=== PATIENT | male | born 1990 | race Caucasian/White ===

== ENCOUNTER 2018-06-05 18:05 | Emergency (ER) | payer OTHER, MEDICAID, SELFPAY ==
[2018-06-05 18:11] VITALS: BP 136/91; PULSE 81; RESP 14; TEMP 36.7; O2SAT 100; BMI 20.5
--- NOTE | 2018-06-05 18:37 | ED.SKABFB ---
HPI - Skin/Abscess/Foreign Bdy <HENRY Monteiro - Last Filed: 06/05/18 21:15> General Chief complaint: Skin/Abscess/Foreign Body Stated complaint: right eye swollen shut Time Seen by Provider: 06/05/18 18:17 Source: patient Mode of arrival: ambulatory Limitations: no limitations History of Present Illness HPI narrative: Patient is a 27-year-old male current everyday smoker who presents by himself with chief complaint of his right eye swollen shut. He states he tried to pop a pimple on his right eyebrow yesterday and got pus out, and then it started swelling. He has not taken anything for pain. He has not applied ice heat or cold packs. He denies any fever, nausea vomiting or diarrhea at this point time. He states his vision is okay, despite the swelling in his right eye. Related Data Previous Rx's Medication Instructions Recorded sulfamethoxazole-trimethoprim 1 tab PO BID #20 tab 06/05/18 [Bactrim DS] Allergies Allergy/AdvReac Type Severity Reaction Status Date / Time Penicillins [PENICILLINS] Allergy Unknown Verified 06/05/18 18:13 Review of Systems <HENRY Monteiro - Last Filed: 06/05/18 21:15> Review of Systems GENERAL: Denies chills, fatigue, malaise, fever, sweats. HEENT: See HPI RESPIRATORY: Denies dyspnea, cough, wheezing, hemoptysis, sputum. CARDIOVASCULAR: Denies chest pain, palpitations, orthopnea, edema, GASTROINTESTINAL: Denies nausea, vomiting, abdominal pain, diarrhea, constipation, melena. : Denies dysuria, frequency, incontinence, hematuria, urinary retention. MUSCULOSKELETAL: denies weakness, joint pain, or bony pain SKIN: See HPI NEUROLOGIC: Denies weakness, headache, numbness, change in speech, confusion, seizures, incoordination. PSYCHIATRIC: No concerning psychosocial issues. 12 point review of systems is negative except for those stated above Exam <HENRY Monteiro - Last Filed: 06/05/18 21:15> Narrative Exam Narrative: GENERAL: This is a well-nourished, well-developed patient, in no acute distress HEAD: Atraumatic. Normocephalic. No temporal or scalp tenderness. EYES: Pupils equal round and reactive. Extraocular motions intact. No scleral icterus. No injection or drainage. ENT: Nose without bleeding, purulent drainage or septal hematoma. Throat without erythema, tonsillar hypertrophy or exudate. Uvula midline. Airway patent. NECK: Trachea midline. No JVD or lymphadenopathy. Supple, nontender, no meningeal signs. CARDIOVASCULAR: Regular rate and rhythm without murmurs, gallops, or rubs. RESPIRATORY: Clear to auscultation. Breath sounds equal bilaterally. No wheezes, rales, or rhonchi. No cough. No increased respiratory effort. GASTROINTESTINAL: Abdomen soft, non-tender, nondistended. No hepato-splenomegaly, or palpable masses. No guarding. EXTREMITIES: No clubbing, cyanosis, or edema. No joint tenderness, effusion, or edema noted. BACK: Nontender without deformity or crepitance. No flank tenderness. NEURO: AOx3. SKIN: Erythema noted right eyebrow with swelling. No palpable fluctuance or abscess. Swelling noted from eyebrow down to top of eyelid. No noted exudate. Initial Vital Signs Initial Vital Signs: Vital Signs Temperature 98.1 F 06/05/18 18:11 Pulse Rate 81 06/05/18 18:11 Respiratory Rate 14 06/05/18 18:11 Blood Pressure 136/91 H 06/05/18 18:11 Pulse Oximetry 100 06/05/18 18:11 <Aries Stewart DO - Last Filed: 06/06/18 00:42> Initial Vital Signs Initial Vital Signs: Vital Signs Temperature 98.1 F 06/05/18 18:11 Pulse Rate 81 06/05/18 18:11 Respiratory Rate 14 06/05/18 18:11 Blood Pressure 136/91 H 06/05/18 18:11 Pulse Oximetry 100 06/05/18 18:11 Course <OWEN Monteiro-BC - Last Filed: 06/05/18 21:15> Orders Ordered: Discontinued Medications Ketorolac Tromethamine (Toradol) 60 mg IM NOW ONE Stop: 06/05/18 18:38 Last Admin: 06/05/18 18:55 Dose: 60 mg Trimethoprim/Sulfamethoxazole (Bactrim Ds) 1 tab PO NOW ONE Stop: 06/05/18 18:48 Last Admin: 06/05/18 18:55 Dose: 1 tab Vital Signs - 8 hr 06/05/18 18:11 06/05/18 19:16 Temperature 98.1 F 97.6 F Pulse Rate 81 98 H Respiratory Rate 14 16 Blood Pressure 136/91 H Pulse Oximetry 100 99 <Aries Stewart DO - Last Filed: 06/06/18 00:42> Orders Ordered: Discontinued Medications Ketorolac Tromethamine (Toradol) 60 mg IM NOW ONE Stop: 06/05/18 18:38 Last Admin: 06/05/18 18:55 Dose: 60 mg Trimethoprim/Sulfamethoxazole (Bactrim Ds) 1 tab PO NOW ONE Stop: 06/05/18 18:48 Last Admin: 06/05/18 18:55 Dose: 1 tab Vital Signs - 8 hr 06/05/18 18:11 06/05/18 19:16 Temperature 98.1 F 97.6 F Pulse Rate 81 98 H Respiratory Rate 14 16 Blood Pressure 136/91 H Pulse Oximetry 100 99 MDM - Skin/Abscess/Foreign Bdy <HENRY Monteiro - Last Filed: 06/05/18 21:15> MDM Narrative Medical decision making narrative: Patient presents with concern about a an infection worry picked at a pimple on his right eye. Exam shows erythema and swelling consistent with cellulitis. No palpable abscess. Will initiate treatment with Bactrim. Patient was given 1st dose as well as Toradol in the emergency department. I encouraged him to keep using warm packs as well as [id number] pain medications as needed. I discussed at length come back to the emergency department for any acute concerns including visual deficit in instructed to monitor for fever at as well as nausea vomiting and diarrhea. Patient no questions or concerns upon discharge. Discharge Plan Departure Patient Disposition: Home Clinical Impression: Cellulitis Discharge Date/Time: 06/05/18 19:17 Interventions: ED Discharge Assessment Last Done: 06/05/18 19:16 Instructions: DI for Cellulitis -- Adult Activity Restrictions/Additional Instructions: I am starting on an antibiotic to help your skin infection. Please monitor for fever, nausea vomiting or diarrhea. Please monitor for spreading of the redness. Please continue use [id number] medications as needed for pain and apply warm packs to the area. Prescriptions: New sulfamethoxazole-trimethoprim [Bactrim DS] 800-160 mg tablet 1 tab PO BID Qty: 20 RF: 0 <Aries Stewart, DO - Last Filed: 06/06/18 00:42> Cosign ED Attending Cosignature Attestation: I was immediately available in the department for consultation. Documentation has been reviewed. I agree with assessment and plan.
--- NOTE | 2018-06-05 18:41 | ED_ITS ---
HPI - Skin/Abscess/Foreign Bdy <HENRY Monteiro - Last Filed: 06/05/18 21:15> General Chief complaint: Skin/Abscess/Foreign Body Stated complaint: right eye swollen shut Time Seen by Provider: 06/05/18 18:17 Source: patient Mode of arrival: ambulatory Limitations: no limitations History of Present Illness HPI narrative: Patient is a 27-year-old male current everyday smoker who presents by himself with chief complaint of his right eye swollen shut. He states he tried to pop a pimple on his right eyebrow yesterday and got pus out, and then it started swelling. He has not taken anything for pain. He has not applied ice heat or cold packs. He denies any fever, nausea vomiting or diarrhea at this point time. He states his vision is okay, despite the swelling in his right eye. Related Data Previous Rx's Medication Instructions Recorded sulfamethoxazole-trimethoprim 1 tab PO BID #20 tab 06/05/18 [Bactrim DS] Allergies Allergy/AdvReac Type Severity Reaction Status Date / Time Penicillins [PENICILLINS] Allergy Unknown Verified 06/05/18 18:13 Review of Systems <HENRY Monteiro - Last Filed: 06/05/18 21:15> Review of Systems GENERAL: Denies chills, fatigue, malaise, fever, sweats. HEENT: See HPI RESPIRATORY: Denies dyspnea, cough, wheezing, hemoptysis, sputum. CARDIOVASCULAR: Denies chest pain, palpitations, orthopnea, edema, GASTROINTESTINAL: Denies nausea, vomiting, abdominal pain, diarrhea, constipation, melena. : Denies dysuria, frequency, incontinence, hematuria, urinary retention. MUSCULOSKELETAL: denies weakness, joint pain, or bony pain SKIN: See HPI NEUROLOGIC: Denies weakness, headache, numbness, change in speech, confusion, seizures, incoordination. PSYCHIATRIC: No concerning psychosocial issues. 12 point review of systems is negative except for those stated above Exam <HENRY Monteiro - Last Filed: 06/05/18 21:15> Narrative Exam Narrative: GENERAL: This is a well-nourished, well-developed patient, in no acute distress HEAD: Atraumatic. Normocephalic. No temporal or scalp tenderness. EYES: Pupils equal round and reactive. Extraocular motions intact. No scleral icterus. No injection or drainage. ENT: Nose without bleeding, purulent drainage or septal hematoma. Throat without erythema, tonsillar hypertrophy or exudate. Uvula midline. Airway patent. NECK: Trachea midline. No JVD or lymphadenopathy. Supple, nontender, no meningeal signs. CARDIOVASCULAR: Regular rate and rhythm without murmurs, gallops, or rubs. RESPIRATORY: Clear to auscultation. Breath sounds equal bilaterally. No wheezes , rales, or rhonchi. No cough. No increased respiratory effort. GASTROINTESTINAL: Abdomen soft, non-tender, nondistended. No hepato-splenomegaly , or palpable masses. No guarding. EXTREMITIES: No clubbing, cyanosis, or edema. No joint tenderness, effusion, or edema noted. BACK: Nontender without deformity or crepitance. No flank tenderness. NEURO: AOx3. SKIN: Erythema noted right eyebrow with swelling. No palpable fluctuance or abscess. Swelling noted from eyebrow down to top of eyelid. No noted exudate. Initial Vital Signs Initial Vital Signs: Vital Signs Temperature 98.1 F 06/05/18 18:11 Pulse Rate 81 06/05/18 18:11 Respiratory Rate 14 06/05/18 18:11 Blood Pressure 136/91 H 06/05/18 18:11 Pulse Oximetry 100 06/05/18 18:11 <Aries Stewart DO - Last Filed: 06/06/18 00:42> Initial Vital Signs Initial Vital Signs: Vital Signs Temperature 98.1 F 06/05/18 18:11 Pulse Rate 81 06/05/18 18:11 Respiratory Rate 14 06/05/18 18:11 Blood Pressure 136/91 H 06/05/18 18:11 Pulse Oximetry 100 06/05/18 18:11 Course <OWEN Monteiro-BC - Last Filed: 06/05/18 21:15> Orders Ordered: Discontinued Medications Ketorolac Tromethamine (Toradol) 60 mg IM NOW ONE Stop: 06/05/18 18:38 Last Admin: 06/05/18 18:55 Dose: 60 mg Trimethoprim/Sulfamethoxazole (Bactrim Ds) 1 tab PO NOW ONE Stop: 06/05/18 18:48 Last Admin: 06/05/18 18:55 Dose: 1 tab Vital Signs - 8 hr 06/05/18 18:11 06/05/18 19:16 Temperature 98.1 F 97.6 F Pulse Rate 81 98 H Respiratory Rate 14 16 Blood Pressure 136/91 H Pulse Oximetry 100 99 <Aries Stewart DO - Last Filed: 06/06/18 00:42> Orders Ordered: Discontinued Medications Ketorolac Tromethamine (Toradol) 60 mg IM NOW ONE Stop: 06/05/18 18:38 Last Admin: 06/05/18 18:55 Dose: 60 mg Trimethoprim/Sulfamethoxazole (Bactrim Ds) 1 tab PO NOW ONE Stop: 06/05/18 18:48 Last Admin: 06/05/18 18:55 Dose: 1 tab Vital Signs - 8 hr 06/05/18 18:11 06/05/18 19:16 Temperature 98.1 F 97.6 F Pulse Rate 81 98 H Respiratory Rate 14 16 Blood Pressure 136/91 H Pulse Oximetry 100 99 MDM - Skin/Abscess/Foreign Bdy <HENRY Monteiro - Last Filed: 06/05/18 21:15> MDM Narrative Medical decision making narrative: Patient presents with concern about a an infection worry picked at a pimple on his right eye. Exam shows erythema and swelling consistent with cellulitis. No palpable abscess. Will initiate treatment with Bactrim. Patient was given 1st dose as well as Toradol in the emergency department. I encouraged him to keep using warm packs as well as over -the-counter pain medications as needed. I discussed at length come back to the emergency department for any acute concerns including visual deficit in instructed to monitor for fever at as well as nausea vomiting and diarrhea. Patient no questions or concerns upon discharge. Discharge Plan Departure Patient Disposition: Home Clinical Impression: Cellulitis Discharge Date/Time: 06/05/18 19:17 Interventions: ED Discharge Assessment Last Done: 06/05/18 19:16 Instructions: DI for Cellulitis -- Adult Activity Restrictions/Additional Instructions: I am starting on an antibiotic to help your skin infection. Please monitor for fever, nausea vomiting or diarrhea. Please monitor for spreading of the redness. Please continue use [id number] medications as needed for pain and apply warm packs to the area. Prescriptions: New sulfamethoxazole-trimethoprim [Bactrim DS] 800-160 mg tablet 1 tab PO BID Qty: 20 RF: 0 <Aries Stewart, DO - Last Filed: 06/06/18 00:42> Cosign ED Attending Cosignature Attestation: I was immediately available in the department for consultation. Documentation has been reviewed. I agree with assessment and plan.
[2018-06-05] MEDS: KETOROLAC 60 MG/2 ML VIAL IM (18:55)
[2018-06-05] MEDS: TRIMETH/SULFA 160/800 (DS) TABLET 1 TAB PO (18:55)
[2018-06-05 19:16] VITALS: PULSE 98; RESP 16; TEMP 36.4; O2SAT 99
== END 2018-06-05 19:17 | disposition home or self-care (01) ==
PROVIDERS: Emergency Provider Nurse Practitioner Family
DX: H00.033 Abscess of eyelid right eye, unspecified eyelid (principal)
CPT/HCPCS: 96372; 99282; 99283; J1885

== ENCOUNTER 2018-06-08 14:00 | Emergency (ER) | payer OTHER, MEDICAID, SELFPAY ==
[2018-06-08 14:09] VITALS: BP 140/90; PULSE 99; RESP 14; TEMP 36.5; O2SAT 99; BMI 21.2
--- NOTE | 2018-06-08 14:10 | ED.SKABFB ---
HPI - Skin/Abscess/Foreign Bdy <CONCEPCION Johnson - Last Filed: 06/08/18 21:23> General Chief complaint: Skin/Abscess/Foreign Body Stated complaint: RIGHT EYE SWELLING SPREADING Time Seen by Provider: 06/08/18 14:08 Source: patient Mode of arrival: ambulatory Limitations: no limitations History of Present Illness HPI narrative: 27-year-old male with history of heroin abuse as an everyday smoker here for complaint of swelling and discomfort to his right periorbital area over the past several days. He was seen in the emergency room 3 days ago and was diagnosed with cellulitis and placed on Bactrim. He states that the swelling has worsened over the past few days and not improved. He does report having a small amount of purulent drainage from the right eyebrow are area. He states that he has accidentally scratched his right eyebrow area and symptoms followed shortly afterwards. He denies any fevers or chills. He does report that he is having pain worsening towards his right cheek area and also towards his right ear area. He denies any stressors relievers of his discomfort. MD complaint: other Related Data Home Medications Medication Instructions Recorded Confirmed buprenorphine-naloxone 8.2 mg SUBLINGUAL DIRECTED 06/08/18 06/08/18 Previous Rx's Medication Instructions Recorded sulfamethoxazole-trimethoprim 1 tab PO BID #20 tab 06/05/18 [Bactrim DS] clindamycin HCl 300 mg PO QID #28 cap 06/08/18 clindamycin HCl 300 mg PO Q6H 10 Days #40 cap 06/09/18 Allergies Allergy/AdvReac Type Severity Reaction Status Date / Time Penicillins [PENICILLINS] Allergy Unknown Verified 06/08/18 14:08 Review of Systems <CONCEPCION Johnson - Last Filed: 06/08/18 21:23> Constitutional Denies chills, Denies fever(s), Denies lethargy and Denies weakness Eyes Comments: Swelling to the periorbital area the right ENT Ears, Nose, Mouth, and Throat: Denies change in voice, Denies neck pain and Denies sore throat Cardiovascular Denies chest pain, Denies irregular heart rhythm, Denies lightheadedness, Denies palpitations, Denies dyspnea, Denies dyspnea on exertion and Denies orthopnea Respiratory Denies cough, Denies dyspnea, Denies dyspnea on exertion and Denies wheezing Gastrointestinal Gastrointestinal: Denies abdominal pain, Denies change in bowel habits, Denies diarrhea, Denies nausea and Denies vomiting Genitourinary Denies hematuria, Denies flank pain, Denies urinary incontinence and Denies urinary urgency Musculoskeletal Denies neck pain Integumentary/Breasts Denies pruritus, Denies erythema, Denies rash and Denies wounds Neurologic Denies confusion and Denies weakness Psychiatric Denies anxiety, Denies confusion, Denies depression, Denies homicidal ideation and Denies suicidal ideation Endocrine Denies palpitations Hematologic/Lymphatic Denies easy bruising Allergic/Immunologic Denies wheezing Exam <CONCEPCION Johnson - Last Filed: 06/08/18 21:23> Initial Vital Signs Initial Vital Signs: Vital Signs Temperature 97.7 F 06/08/18 14:09 Pulse Rate 99 H 06/08/18 14:09 Respiratory Rate 14 06/08/18 14:09 Blood Pressure 140/90 06/08/18 14:09 Pulse Oximetry 99 06/08/18 14:09 Const General: cooperative and well developed Nutritional Appearance: well nourished Orientation: alert, awake, oriented x3 and not confused HENWI Mouth: oral mucosae normal and moist mucous membranes Eyes Periorbital: periorbital findings abnormal (Swelling to the periorbital area and eyebrow area of the right eye. No fluctuance) right Conjunctivae: conjunctivae normal Sclera: sclerae normal Pupils: PERRL EOM: EOM intact bilaterally Resp Effort & Inspection: normal respiratory effort, able to speak in complete sentences, no respiratory distress and no use of accessory muscles Auscultation: clear to auscultation bilaterally, no rales, no rhonchi and no wheezes Cardio Rate: regular rate Rhythm: regular rhythm Heart Sounds: no click, no gallops, no murmurs and no rubs Pulses: normal peripheral pulses Skin General: no rashes or lesions noted, No jaundice and No petechiae Neuro General: alert, oriented x3, gait normal and no focal motor deficits Speech: speech normal <Nury Lomeli DO - Last Filed: 06/11/18 07:28> Initial Vital Signs Initial Vital Signs: Vital Signs Temperature 97.7 F 06/08/18 14:09 Pulse Rate 99 H 06/08/18 14:09 Respiratory Rate 14 06/08/18 14:09 Blood Pressure 140/90 06/08/18 14:09 Pulse Oximetry 99 06/08/18 14:09 Course <CONCEPCION Johnson - Last Filed: 06/08/18 21:23> Orders Ordered: Discontinued Medications Ceftriaxone Sodium/Dextrose (Rocephin) 2 gm in 50 mls @ 100 mls/hr IV NOW ONE Stop: 06/08/18 15:23 Last Infusion: 06/08/18 15:36 Dose: 0 mls/hr Admin: 06/08/18 15:03 Dose: 100 mls/hr Vancomycin HCl 1,250 mg/ (Sodium Chloride) 250 mls @ 250 mls/hr IV NOW ONE Stop: 06/08/18 14:55 Last Infusion: 06/08/18 16:42 Dose: 0 mls/hr Admin: 06/08/18 15:34 Dose: 250 mls/hr Vital Signs - 8 hr 06/08/18 14:09 06/08/18 15:45 06/08/18 16:51 Temperature 97.7 F Pulse Rate 99 H 92 H 100 H Respiratory Rate 14 20 20 Blood Pressure 140/90 129/82 Blood Pressure [Left Arm] 133/85 Pulse Oximetry 99 100 99 <Nury Lomeli DO - Last Filed: 06/11/18 07:28> Orders Ordered: Discontinued Medications Ceftriaxone Sodium/Dextrose (Rocephin) 2 gm in 50 mls @ 100 mls/hr IV NOW ONE Stop: 06/08/18 15:23 Last Infusion: 06/08/18 15:36 Dose: 0 mls/hr Admin: 06/08/18 15:03 Dose: 100 mls/hr Vancomycin HCl 1,250 mg/ (Sodium Chloride) 250 mls @ 250 mls/hr IV NOW ONE Stop: 06/08/18 14:55 Last Infusion: 06/08/18 16:42 Dose: 0 mls/hr Admin: 06/08/18 15:34 Dose: 250 mls/hr Vital Signs - 8 hr 06/08/18 14:09 06/08/18 15:45 06/08/18 16:51 Temperature 97.7 F Pulse Rate 99 H 92 H 100 H Respiratory Rate 14 20 20 Blood Pressure 140/90 129/82 Blood Pressure [Left Arm] 133/85 Pulse Oximetry 99 100 99 MDM - Skin/Abscess/Foreign Bdy <Alverto CONCEPCION Gorman - Last Filed: 06/08/18 21:23> Lab Data Result diagrams: 06/08/18 14:40 06/08/18 14:40 Lab Results 06/08/18 06/08/18 06/08/18 Range/Units 14:40 14:40 14:40 WBC 6.7 (4.5-11.0) X10^3/uL RBC 4.35 L (4.5-5.9) X10^6/uL Hgb 14.2 (13.5-17.5) g/dL Hct 40.9 L (41-53) % MCV 94.1 (80-100) fL MCH 32.6 (26-34) PG MCHC 34.7 (30-36) % RDW 12.8 (11.6-14.8) % Plt Count 246 (150-400) X10^3/uL Neut % (Auto) 64.5 (50-75) % Lymph % (Auto) 25.6 (25-40) % [place]ac % (Auto) 8.7 (3-14) % Eos % (Auto) 0.6 L (2-4) % Baso % (Auto) 0.6 (0-2) % Neut # (Auto) 4300 (5485-5024) /uL Sodium 140 (137-145) mmol/L Potassium 4.1 (3.4-5.1) mmol/L Chloride 102 (98-107) mmol/L Carbon Dioxide 27 (22-32) mmol/L BUN 15 (9-20) mg/dL Creatinine 1.00 (0.66-1.25) mg/dL Estimated GFR > 60.0 (>60) mL/min BUN/Creatinine Ratio 15.0 (6-22) Glucose 92 (70-100) mg/dL Lactate (0.7-2.1) mmol/L Calcium 9.5 (8.4-10.2) mg/dL Total Bilirubin 2.5 H (0.2-1.3) mg/dL AST 29 (17-59) IU/L ALT 29 (21-72) IU/L Alkaline Phosphatase 72 (38-126) U/L Total Protein 7.8 (6.3-8.2) g/dL Albumin 4.5 (3.5-5.0) g/dL Globulin 3.3 (1.7-4.1) g/dL Albumin/Globulin Ratio 1.4 (1.0-2.8) Procalcitonin < 0.05 (<0.5) ng/mL 06/08/18 Range/Units 14:40 WBC (4.5-11.0) X10^3/uL RBC (4.5-5.9) X10^6/uL Hgb (13.5-17.5) g/dL Hct (41-53) % MCV (80-100) fL MCH (26-34) PG MCHC (30-36) % RDW (11.6-14.8) % Plt Count (150-400) X10^3/uL Neut % (Auto) (50-75) % Lymph % (Auto) (25-40) % [place] % (Auto) (3-14) % Eos % (Auto) (2-4) % Baso % (Auto) (0-2) % Neut # (Auto) (4193-8228) /uL Sodium (137-145) mmol/L Potassium (3.4-5.1) mmol/L Chloride (98-107) mmol/L Carbon Dioxide (22-32) mmol/L BUN (9-20) mg/dL Creatinine (0.66-1.25) mg/dL Estimated GFR (>60) mL/min BUN/Creatinine Ratio (6-22) Glucose (70-100) mg/dL Lactate 0.6 L (0.7-2.1) mmol/L Calcium (8.4-10.2) mg/dL Total Bilirubin (0.2-1.3) mg/dL AST (17-59) IU/L ALT (21-72) IU/L Alkaline Phosphatase (38-126) U/L Total Protein (6.3-8.2) g/dL Albumin (3.5-5.0) g/dL Globulin (1.7-4.1) g/dL Albumin/Globulin Ratio (1.0-2.8) Procalcitonin (<0.5) ng/mL Imaging Data facial ct: Radiologist's impression: [address] [address] [address] Scan Report Signed Patient: Brandyn Orellana MR#: [id number] : 1990 Acct:[id number] Age/Sex: 27 / M Date of Service: 06/08/18 Loc: ED Accession Number: [id number] Procedure: CT facial bones w con Ordering Provider: Alverto Gorman PROCEDURE: CT FACIAL BONES W CON INDICATIONS: Worsening swelling and redness right orbit TECHNIQUE: After the administration of intravenous contrast, 2.5 mm axial sections acquired from the mid-neck to the frontal sinuses, with coronal and sagittal reformats. For radiation dose reduction, the following was used: automated exposure control, adjustment of mA and/or kV according to patient size. COMPARISON: None. FINDINGS: Image quality: Excellent. Soft tissues: There is right periorbital soft tissue swelling with skin thickening and subcutaneous edema. No discrete loculated abscess collection is identified. No intraorbital fluid collection or fat stranding. The globes appear intact. The extraocular muscles appear symmetric and within normal limits bilaterally. No enlarged lymph nodes by CT size criteria. Vascular: Visualized vascular structures appear patent throughout. Bony vascular foramina and canals appear normal. Bones: Facial bones appear intact, without acute fractures, erosions, or destruction. Visualized portions of the skull base and auditory canals also appear normal. Sinuses: Paranasal sinuses are aerated without fluid levels, mucosal thickening, or mucoceles. Mastoid air cells are aerated. IMPRESSION: 1. Right periorbital soft tissue swelling likely representing cellulitis. No evidence of intraconal retrobulbar extension. 2. No discrete loculated abscess collection is identified. Dictated by: Frank Stanley M.D. on 06/08/2018 at 14:09 Approved by: Frank Stanley M.D. on 06/08/2018 at 14:12 [facility] Narrative Medical decision making narrative: Cellulitis to the right periorbital area not improving with oral antibiotics. CT of the area shows finding consistent with preseptal cellulitis. Discussed with patient admission to hospital for IV antibiotics. Patient refused admission due to work requirements. He was given vancomycin along with Rocephin in the emergency room IV. Photo of his right a was obtained on patient's phone he will followup tomorrow for re-evaluation. He is placed on clindamycin orally. Return emergency room tomorrow for re-evaluation. Return sooner for any worsening symptoms. <Nury Lomeli, DO - Last Filed: 06/11/18 07:28> Lab Data Lab Results 06/08/18 06/08/18 06/08/18 Range/Units 14:40 14:40 14:40 WBC 6.7 (4.5-11.0) X10^3/uL RBC 4.35 L (4.5-5.9) X10^6/uL Hgb 14.2 (13.5-17.5) g/dL Hct 40.9 L (41-53) % MCV 94.1 (80-100) fL MCH 32.6 (26-34) PG MCHC 34.7 (30-36) % RDW 12.8 (11.6-14.8) % Plt Count 246 (150-400) X10^3/uL Neut % (Auto) 64.5 (50-75) % Lymph % (Auto) 25.6 (25-40) % [place] % (Auto) 8.7 (3-14) % Eos % (Auto) 0.6 L (2-4) % Baso % (Auto) 0.6 (0-2) % Neut # (Auto) 4300 (6403-6355) /uL Sodium 140 (137-145) mmol/L Potassium 4.1 (3.4-5.1) mmol/L Chloride 102 (98-107) mmol/L Carbon Dioxide 27 (22-32) mmol/L BUN 15 (9-20) mg/dL Creatinine 1.00 (0.66-1.25) mg/dL Estimated GFR > 60.0 (>60) mL/min BUN/Creatinine Ratio 15.0 (6-22) Glucose 92 (70-100) mg/dL Lactate (0.7-2.1) mmol/L Calcium 9.5 (8.4-10.2) mg/dL Total Bilirubin 2.5 H (0.2-1.3) mg/dL AST 29 (17-59) IU/L ALT 29 (21-72) IU/L Alkaline Phosphatase 72 (38-126) U/L Total Protein 7.8 (6.3-8.2) g/dL Albumin 4.5 (3.5-5.0) g/dL Globulin 3.3 (1.7-4.1) g/dL Albumin/Globulin Ratio 1.4 (1.0-2.8) Procalcitonin < 0.05 (<0.5) ng/mL 06/08/18 Range/Units 14:40 WBC (4.5-11.0) X10^3/uL RBC (4.5-5.9) X10^6/uL Hgb (13.5-17.5) g/dL Hct (41-53) % MCV (80-100) fL MCH (26-34) PG MCHC (30-36) % RDW (11.6-14.8) % Plt Count (150-400) X10^3/uL Neut % (Auto) (50-75) % Lymph % (Auto) (25-40) % [place] % (Auto) (3-14) % Eos % (Auto) (2-4) % Baso % (Auto) (0-2) % Neut # (Auto) (2612-0053) /uL Sodium (137-145) mmol/L Potassium (3.4-5.1) mmol/L Chloride (98-107) mmol/L Carbon Dioxide (22-32) mmol/L BUN (9-20) mg/dL Creatinine (0.66-1.25) mg/dL Estimated GFR (>60) mL/min BUN/Creatinine Ratio (6-22) Glucose (70-100) mg/dL Lactate 0.6 L (0.7-2.1) mmol/L Calcium (8.4-10.2) mg/dL Total Bilirubin (0.2-1.3) mg/dL AST (17-59) IU/L ALT (21-72) IU/L Alkaline Phosphatase (38-126) U/L Total Protein (6.3-8.2) g/dL Albumin (3.5-5.0) g/dL Globulin (1.7-4.1) g/dL Albumin/Globulin Ratio (1.0-2.8) Procalcitonin (<0.5) ng/mL Discharge Plan Departure Patient Disposition: Home Clinical Impression: Preseptal cellulitis of right eye Discharge Date/Time: 06/08/18 16:52 Interventions: ED Discharge Assessment Last Done: 06/08/18 16:51 Instructions: DI for Cellulitis -- Adult Activity Restrictions/Additional Instructions: IV antibiotics were given in the emergency room today. Follow up with the emergency room tomorrow for re-evaluation. Oral antibiotics has been changed to clindamycin use as directed. Stop taking the Septra. Use [id number] Tylenol or Motrin as needed for any discomfort. Warm moist compresses to the area a few times a day over the next few days. For any worsening symptoms return to the Emergency Room sooner. Prescriptions: New clindamycin HCl 300 mg capsule 300 mg PO QID Qty: 28 RF: 0 No Action sulfamethoxazole-trimethoprim [Bactrim DS] 800-160 mg tablet 1 tab PO BID Qty: 20 RF: 0 buprenorphine-naloxone 8-2 mg tablet, sublingual 8.2 mg Sublingual DIRECTED RF: 0 clindamycin HCl 300 mg capsule 300 mg PO Q6H 10 Days Qty: 40 RF: 0 Referrals: [facility] [Provider Group] <Nury Lomeli DO - Last Filed: 06/11/18 07:28> Cosign ED Attending Cosignature Attestation: I was immediately available in the department for consultation. This documentation has been reviewed and I agree with assessment and plan. Supervised by Nury Lomeli DO
--- NOTE | 2018-06-08 14:32 | DI.CT.S_ITS ---
PROCEDURE: CT FACIAL BONES W CON INDICATIONS: Worsening swelling and redness right orbit TECHNIQUE: After the administration of intravenous contrast, 2.5 mm axial sections acquired from the mid-neck to the frontal sinuses, with coronal and sagittal reformats. For radiation dose reduction, the following was used: automated exposure control, adjustment of mA and/or kV according to patient size. COMPARISON: None. FINDINGS: Image quality: Excellent. Soft tissues: There is right periorbital soft tissue swelling with skin thickening and subcutaneous edema. No discrete loculated abscess collection is identified. No intraorbital fluid collection or fat stranding. The globes appear intact. The extraocular muscles appear symmetric and within normal limits bilaterally. No enlarged lymph nodes by CT size criteria. Vascular: Visualized vascular structures appear patent throughout. Bony vascular foramina and canals appear normal. Bones: Facial bones appear intact, without acute fractures, erosions, or destruction. Visualized portions of the skull base and auditory canals also appear normal. Sinuses: Paranasal sinuses are aerated without fluid levels, mucosal thickening, or mucoceles. Mastoid air cells are aerated. IMPRESSION: 1. Right periorbital soft tissue swelling likely representing cellulitis. No evidence of intraconal retrobulbar extension. 2. No discrete loculated abscess collection is identified. Dictated by: Frank Stanley M.D. on 06/08/2018 at 14:09 Approved by: Frank Stanley M.D. on 06/08/2018 at 14:12
[2018-06-08 15:02] LABS: Add Manual Diff / Slide Review NO; Basophils Percent Auto 0.6 % (0-2); Eosinophils Percent Auto 0.6 % (2-4); Hematocrit 40.9 % (41-53); Hemoglobin 14.2 g/dL (13.5-17.5); Lymphocytes Percent Auto 25.6 % (25-40); Mean Corpuscular HGB Conc 34.7 % (30-36); Mean Corpuscular Hemoglobin 32.6 PG (26-34); Mean Corpuscular Volume 94.1 fL (80-100); Monocytes Percent Auto 8.7 % (3-14); Neutrophils Absolute Auto 4300 /uL (1500-7000); Neutrophils Percent Auto 64.5 % (50-75); Platelet Count 246 X10^3/uL (150-400); Red Blood Cell Count 4.35 X10^6/uL (4.5-5.9); Red Cell Distribution Width 12.8 % (11.6-14.8); White Blood Cell Count 6.7 X10^3/uL (4.5-11.0)
[2018-06-08] MEDS: CEFTRIAXONE 2 GM/50 ML FROZ.PIGGY IV (15:03)
[2018-06-08 15:15] LABS: Alanine Aminotransferase 29 IU/L (21-72); Albumin 4.5 g/dL (3.5-5.0); Albumin Globulin Ratio 1.4 (1.0-2.8); Alkaline Phosphatase 72 U/L (38-126); Aspartate Aminotransferase 29 IU/L (17-59); Bilirubin Total 2.5 mg/dL (0.2-1.3); Blood Urea Nitrogen 15 mg/dL (9-20); Calcium 9.5 mg/dL (8.4-10.2); Carbon Dioxide 27 mmol/L (22-32); Chloride 102 mmol/L (98-107); Estimated Glomerular Filt Rate > 60.0 mL/min (>60); Globulin 3.3 g/dL (1.7-4.1); Glucose 92 mg/dL (70-100); HEMOLYSIS < 15 (0-50); Lactate (Lactic Acid) 0.6 mmol/L (0.7-2.1); Potassium 4.1 mmol/L (3.4-5.1); Sodium 140 mmol/L (137-145); Total Protein 7.8 g/dL (6.3-8.2)
[2018-06-08] MEDS: VANCOMYCIN 1,250 MG in SODIUM CHLORIDE 0.9% 250 ML IV (15:34)
[2018-06-08 15:36] LABS: Procalcitonin < 0.05 ng/mL (<0.5)
[2018-06-08 15:45] VITALS: BP 133/85; PULSE 92; RESP 20; O2SAT 100
[2018-06-08 16:51] VITALS: BP 129/82; PULSE 100; RESP 20; O2SAT 99
== END 2018-06-08 16:52 | disposition home or self-care (01) ==
PROVIDERS: Emergency Provider Nurse Practitioner Family
DX: L03.213 Periorbital cellulitis (principal)
CPT/HCPCS: 36415; 36591; 70487; 80053; 83605; 84145; 85025; 87040; 96365; 96367; 99283; 99284; J0696

== ENCOUNTER 2018-06-09 14:00 | Emergency (ER) | payer OTHER, MEDICAID, SELFPAY ==
[2018-06-09 14:08] VITALS: BP 125/80; PULSE 100; RESP 15; TEMP 36.4; O2SAT 98; BMI 21.2
--- NOTE | 2018-06-09 15:16 | ED.RECABL ---
HPI - Recheck/Abnormal Lab/Rx <Viviana Howard PA-C - Last Filed: 06/09/18 21:39> General Chief Complaint: Recheck/Abnormal Lab/Rx Stated Complaint: iv drip today sent from ER yesterday Time Seen by Provider: 06/09/18 15:15 Source: patient Mode of arrival: ambulatory Limitations: no limitations History of Present Illness HPI narrative: This 27-year-old healthy male returns for follow-up on periorbital cellulitis. He was seen here 4 days ago and put on oral antibiotics, but redness and swelling worsened. He returned yesterday and was given IV antibiotics and a prescription for clindamycin orally. He states that he never started the clindamycin, as his car broke down and could not get to the pharmacy, however he states this is markedly improved today. He has no pain now. He has not had a fever. He states he had small amount of pus drained earlier but mostly thin fluid. He has been working today and going about his usual activities. Related Data Home Medications Medication Instructions Recorded Confirmed buprenorphine-naloxone 8.2 mg SUBLINGUAL DIRECTED 06/08/18 06/08/18 Previous Rx's Medication Instructions Recorded sulfamethoxazole-trimethoprim 1 tab PO BID #20 tab 06/05/18 [Bactrim DS] clindamycin HCl 300 mg PO QID #28 cap 06/08/18 clindamycin HCl 300 mg PO Q6H 10 Days #40 cap 06/09/18 Allergies Allergy/AdvReac Type Severity Reaction Status Date / Time Penicillins [PENICILLINS] Allergy Unknown Verified 06/08/18 14:08 Review of Systems <Viviana Howard PA-C - Last Filed: 06/09/18 21:39> Review of Systems All systems reviewed & are unremarkable except as noted in HPI and below Exam <Viviana Howard PA-C - Last Filed: 06/09/18 21:39> Narrative Exam Narrative: GENERAL APPEARANCE: Patient sitting comfortably, in no distress. HEENT: PERRL, EOMI, normal nasal mucosa and oropharynx NECK: Supple, no lymphadenopathy LUNGS: Clear to auscultation bilaterally. HEART: Rate and rhythm regular without murmur, normal S1 and S2, no S3 or S4. DERMATOLOGIC: Right eyelid and infraorbital skin are erythematous, mildly edematous, not warm to touch, nontender. There is a drop of serous drainage in the right eyebrow where there is an open pore. Appearance markedly improved from patient's cell phone picture taken yesterday where eye is nearly swollen shut Initial Vital Signs Initial Vital Signs: Vital Signs Temperature 97.6 F 06/09/18 14:08 Pulse Rate 100 H 06/09/18 14:08 Respiratory Rate 15 06/09/18 14:08 Blood Pressure 125/80 06/09/18 14:08 Pulse Oximetry 98 06/09/18 14:08 <Ramon Jaquez DO - Last Filed: 06/10/18 07:11> Initial Vital Signs Initial Vital Signs: Vital Signs Temperature 97.6 F 06/09/18 14:08 Pulse Rate 100 H 06/09/18 14:08 Respiratory Rate 15 06/09/18 14:08 Blood Pressure 125/80 06/09/18 14:08 Pulse Oximetry 98 06/09/18 14:08 Course <Viviana Howard PA-C - Last Filed: 06/09/18 21:39> Additional Information: Patient is markedly improved since yesterday in terms of degree of swelling, redness, and pain, despite not having picked up oral antibiotic prescription. He does not appear to need more IV antibiotics today. I did print a new prescription for clindamycin for him and he promises to have this filled on his way home as well as plan to return if acutely worse again as he has no PCP. Vital Signs - 8 hr 06/09/18 14:08 Temperature 97.6 F Pulse Rate 100 H Respiratory Rate 15 Blood Pressure 125/80 Pulse Oximetry 98 <Ramon Jaquez DO - Last Filed: 06/10/18 07:11> Vital Signs - 8 hr 06/09/18 14:08 Temperature 97.6 F Pulse Rate 100 H Respiratory Rate 15 Blood Pressure 125/80 Pulse Oximetry 98 Discharge Plan Departure Patient Disposition: Home Clinical Impression: Periorbital cellulitis of left eye Discharge Date/Time: 06/09/18 15:36 Interventions: ED Discharge Assessment Last Done: 06/09/18 15:36 Instructions: DI for Cellulitis -- Adult Activity Restrictions/Additional Instructions: Since you are so much better today, you do not appear to need more IV antibiotics now. You should return to the emergency room as we discussed if you have any acutely worsening symptoms again such as more redness, swelling, or pain, or new symptoms such as high fever. Otherwise, please take [id number] anti-inflammatory such as ibuprofen or Aleve to help with pain and swelling. 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 It is vital that you start this right away to make sure that you continue to improve. Keep the skin clean and dry. You can apply hot packs to help with drainage, but avoid manipulating the area with your hands Prescriptions: New clindamycin HCl 300 mg capsule 300 mg PO Q6H 10 Days Qty: 40 RF: 0 No Action sulfamethoxazole-trimethoprim [Bactrim DS] 800-160 mg tablet 1 tab PO BID Qty: 20 RF: 0 buprenorphine-naloxone 8-2 mg tablet, sublingual 8.2 mg Sublingual DIRECTED RF: 0 clindamycin HCl 300 mg capsule 300 mg PO QID Qty: 28 RF: 0 <Ramon Jaquez DO - Last Filed: 06/10/18 07:11> [facility] Attestation: I was available for consultation during this patient's emergency department encounter
--- NOTE | 2018-06-09 15:33 | ED_ITS ---
HPI - Recheck/Abnormal Lab/Rx <Viviana Howard PA-C - Last Filed: 06/09/18 21:39> General Chief Complaint: Recheck/Abnormal Lab/Rx Stated Complaint: iv drip today sent from ER yesterday Time Seen by Provider: 06/09/18 15:15 Source: patient Mode of arrival: ambulatory Limitations: no limitations History of Present Illness HPI narrative: This 27-year-old healthy male returns for follow-up on periorbital cellulitis. He was seen here 4 days ago and put on oral antibiotics , but redness and swelling worsened. He returned yesterday and was given IV antibiotics and a prescription for clindamycin orally. He states that he never started the clindamycin, as his car broke down and could not get to the pharmacy , however he states this is markedly improved today. He has no pain now. He has not had a fever. He states he had small amount of pus drained earlier but mostly thin fluid. He has been working today and going about his usual activities. Related Data Home Medications Medication Instructions Recorded Confirmed buprenorphine-naloxone 8.2 mg SUBLINGUAL DIRECTED 06/08/18 06/08/18 Previous Rx's Medication Instructions Recorded sulfamethoxazole-trimethoprim 1 tab PO BID #20 tab 06/05/18 [Bactrim DS] clindamycin HCl 300 mg PO QID #28 cap 06/08/18 clindamycin HCl 300 mg PO Q6H 10 Days #40 cap 06/09/18 Allergies Allergy/AdvReac Type Severity Reaction Status Date / Time Penicillins [PENICILLINS] Allergy Unknown Verified 06/08/18 14:08 Review of Systems <Viviana Howard PA-C - Last Filed: 06/09/18 21:39> Review of Systems All systems reviewed & are unremarkable except as noted in HPI and below Exam <Viviana Howard PA-C - Last Filed: 06/09/18 21:39> Narrative Exam Narrative: GENERAL APPEARANCE: Patient sitting comfortably, in no distress. HEENT: PERRL, EOMI, normal nasal mucosa and oropharynx NECK: Supple, no lymphadenopathy LUNGS: Clear to auscultation bilaterally. HEART: Rate and rhythm regular without murmur, normal S1 and S2, no S3 or S4. DERMATOLOGIC: Right eyelid and infraorbital skin are erythematous, mildly edematous, not warm to touch, nontender. There is a drop of serous drainage in the right eyebrow where there is an open pore. Appearance markedly improved from patient's cell phone picture taken yesterday where eye is nearly swollen shut Initial Vital Signs Initial Vital Signs: Vital Signs Temperature 97.6 F 06/09/18 14:08 Pulse Rate 100 H 06/09/18 14:08 Respiratory Rate 15 06/09/18 14:08 Blood Pressure 125/80 06/09/18 14:08 Pulse Oximetry 98 06/09/18 14:08 <Ramon Jaquez DO - Last Filed: 06/10/18 07:11> Initial Vital Signs Initial Vital Signs: Vital Signs Temperature 97.6 F 06/09/18 14:08 Pulse Rate 100 H 06/09/18 14:08 Respiratory Rate 15 06/09/18 14:08 Blood Pressure 125/80 06/09/18 14:08 Pulse Oximetry 98 06/09/18 14:08 Course <Viviana Howard PA-C - Last Filed: 06/09/18 21:39> Additional Information: Patient is markedly improved since yesterday in terms of degree of swelling, redness, and pain, despite not having picked up oral antibiotic prescription. He does not appear to need more IV antibiotics today. I did print a new prescription for clindamycin for him and he promises to have this filled on his way home as well as plan to return if acutely worse again as he has no PCP. Vital Signs - 8 hr 06/09/18 14:08 Temperature 97.6 F Pulse Rate 100 H Respiratory Rate 15 Blood Pressure 125/80 Pulse Oximetry 98 <Ramon Jaquez DO - Last Filed: 06/10/18 07:11> Vital Signs - 8 hr 06/09/18 14:08 Temperature 97.6 F Pulse Rate 100 H Respiratory Rate 15 Blood Pressure 125/80 Pulse Oximetry 98 Discharge Plan Departure Patient Disposition: Home Clinical Impression: Periorbital cellulitis of left eye Discharge Date/Time: 06/09/18 15:36 Interventions: ED Discharge Assessment Last Done: 06/09/18 15:36 Instructions: DI for Cellulitis -- Adult Activity Restrictions/Additional Instructions: Since you are so much better today, you do not appear to need more IV antibiotics now. You should return to the emergency room as we discussed if you have any acutely worsening symptoms again such as more redness, swelling, or pain, or new symptoms such as high fever. Otherwise, please take over-the- counter anti-inflammatory such as ibuprofen or Aleve to help with pain and swelling. 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 It is vital that you start this right away to make sure that you continue to improve. Keep the skin clean and dry. You can apply hot packs to help with drainage, but avoid manipulating the area with your hands Prescriptions: New clindamycin HCl 300 mg capsule 300 mg PO Q6H 10 Days Qty: 40 RF: 0 No Action sulfamethoxazole-trimethoprim [Bactrim DS] 800-160 mg tablet 1 tab PO BID Qty: 20 RF: 0 buprenorphine-naloxone 8-2 mg tablet, sublingual 8.2 mg Sublingual DIRECTED RF: 0 clindamycin HCl 300 mg capsule 300 mg PO QID Qty: 28 RF: 0 <Ramon Jaquez DO - Last Filed: 06/10/18 07:11> [facility] Attestation: I was available for consultation during this patient's emergency department encounter
--- NOTE | 2018-06-09 15:37 | PC.NURSE ---
dry clothing given that was found in supply room
== END 2018-06-09 15:36 | disposition home or self-care (01) ==
PROVIDERS: Emergency Provider Internal Medicine
DX: L03.213 Periorbital cellulitis (principal)
CPT/HCPCS: 99282